=== PATIENT | female | born 1960 | race Caucasian/White ===

== ENCOUNTER 2017-09-23 10:31 | Outpatient (CLI) | payer OTHER ==
--- NOTE | 2017-09-23 14:53 | MRI ---
MRI BRAIN WITHOUT CONTRAST: Date 09/23/17 HISTORY: Chronic headache. Migraine headache. COMPARISON: None. TECHNIQUE: Brain MRI is performed without intravenous Gadolinium administration. Multisequential, multiplanar i maging is performed. FINDINGS: No hemorrhage on the axial gradient echo sequence. Calvarium has a normal marrow signal intensity. Midline brain parenchymal structures are unremarkabl e. Central arterial flow-voids are maintained. Absent restricted diffusion. Adequate aeration of the sinuses and mastoid air cells. Minimal white matter hyperintensities on the axial T2 and FLAIR sequence likely due to chronic small vessel ischemic change. No parenchymal mass, mass effect, or midline shift. Brain volume is age-appropriate. Cortical hutchinson-w serekanth matter differentiation preserved. Ventricles and sulci are patent and symmetric. IMPRESSION: Unremarkable noncontrast brain MRI. POS: JORDON
== END 2017-09-23 10:32 | disposition home or self-care (01) ==
LOC: MRI 10:31
PROVIDERS: ATTEND Student in an Organized Health Care Education/Training Program
DX: G43.909 Migraine, unspecified, not intractable, without status migrainosus (principal); R51 Headache
CPT/HCPCS: 70551

== ENCOUNTER 2018-05-01 12:54 | Outpatient (CLI) | payer OTHER | END 2018-05-01 12:55 | disposition home or self-care (01) | LOC: BICCT 12:54 | PROVIDERS: ATTEND Orthopaedic Surgery Hand Surgery | DX: M18.11 Unilateral primary osteoarthritis of first carpometacarpal joint, right hand (principal) ==

== ENCOUNTER 2018-06-16 12:01 | Outpatient (CLI) | payer OTHER ==
--- NOTE | 2018-06-16 15:31 | MRI ---
MRI OF THE LEFT WRIST: Date: 06/16/18 PROVIDED CLINICAL HISTORY: Left wrist pain and swelling. FINDINGS: The dorsal extensor and volar flexor tendons demonstrate an intact MR appearance. There is greater th an physiologic tenosynovial fluid involving the contents of the carpal tunnel. Greater than physiolog ic tenosynovial fluid also involves the fourth dorsal extensor compartment. There is slightly greater than physiologic fluid within the distal radial ulnar, mid carpal, and radi ocarpal joints. Evaluation is limited by patient motion on the coronal and sagittal sequences. Radioc arpal joint space loss is suggested. There is patchy periarticular marrow signal alteration within th e carpus. The TFC complex appears grossly intact. The intrinsic wrist ligaments are not well evaluate d. The courses of the regional major neurovascular structures demonstrate an unremarkable MR appearance. No focal concerning regional muscular signal abnormality. IMPRESSION: Flexor and extensor tenosynovitis, along with small radiocarpal, mid carpal, and distal radioulnar heidi int effusions and patchy carpal marrow edema. Findings suggest inflammatory arthritis such as rheumat oid. Infectious etiologies should also be considered. POS: KHANH
== END 2018-06-16 12:02 | disposition home or self-care (01) ==
LOC: SCSMRI 12:01
PROVIDERS: ATTEND Orthopaedic Surgery Hand Surgery
DX: M65.4 Radial styloid tenosynovitis [de Quervain] (principal); M77.8 Other enthesopathies, not elsewhere classified

== ENCOUNTER 2019-01-14 13:06 | Outpatient (CLI) | payer OTHER ==
--- NOTE | 2019-01-14 16:02 | CT ---
CT CHEST WITHOUT CONTRAST: 01/14/19 HISTORY: Banning sized lesion in the right upper lobe noted on a shoulder radiograph. COMPARISON: None. TECHNIQUE: Noncontrast chest CT is performed in the axial plane. Reformatted images are submitted for interpreta tion. FINDINGS: There is enlarged precarinal lymph node measuring 1.3 x 1.6 cm. Heart size is within normal limits. N o pericardial effusion. There is atherosclerosis of a nonaneurysmal aorta. The visualized upper solid organs are grossly unremarkable. Mildly enlarged 1.4 cm right axillary lym ph node. Trachea and central bronchi are patent. Mild bullous change in both lung apices. There are no suspici ous masses or consolidation in the right upper lobe, middle lobe, or right lower lobe. There are no s uspicious masses or consolidation in the left upper lobe or left lower lobe. Minimal bullous changes in the superior segment of the left lower lobe. There are no lytic or blastic lesions within the osseous structures. IMPRESSION: 1. Nonspecific precarinal as well as right axillary lymph nodes, mildly enlarged. 2. No suspicious masses in the lung parenchyma. Mild bullous change involving both lung apices a nd the superior of the left lower lobe. POS: [facility]
== END 2019-01-14 13:07 | disposition home or self-care (01) ==
LOC: SCSCT 13:06
PROVIDERS: ATTEND Orthopaedic Surgery Hand Surgery
DX: Z72.0 Tobacco use (principal); R59.0 Localized enlarged lymph nodes
CPT/HCPCS: 71250

== ENCOUNTER 2019-02-17 10:44 | Outpatient (CLI) | payer OTHER ==
--- NOTE | 2019-02-23 13:21 | MMO ---
Bilateral MAMMO Bilat Screen DDI. CLINICAL HISTORY: Patient is 58 years old and is seen for screening. The patient has no family history of breast cancer. The patient has no personal history of cancer. VIEWS: The views performed were: bilateral craniocaudal and bilateral mediolateral oblique. This study has been interpreted with the assistance of computer-aided detection. MAMMOGRAM FINDINGS: There are scattered fibroglandular densities. There are no suspicious masses, calcifications or areas of architectural distortion. IMPRESSION: THERE IS NO MAMMOGRAPHIC EVIDENCE OF MALIGNANCY. A ROUTINE FOLLOW-UP MAMMOGRAM IN 1 YEAR IS RECOMMENDED. ACR BI-RADS Category 1 - Negative MAMMOGRAPHY NOTE: 1. A negative mammogram report should not delay a biopsy if a dominant of clinically suspicious mass is present. 2. Approximately 10% to 15% of breast cancers are not detected by mammography. 3. Adenosis and dense breasts may obscure an underlying neoplasm.
== END 2019-02-17 10:45 | disposition home or self-care (01) ==
LOC: BICMAMMO 10:44
PROVIDERS: ATTEND Nurse Practitioner Family
DX: Z12.31 Encounter for screening mammogram for malignant neoplasm of breast (principal)
CPT/HCPCS: 77063; 77067

== ENCOUNTER 2019-02-17 15:05 | Outpatient (CLI) | payer OTHER ==
--- NOTE | 2019-02-17 16:25 | ULT ---
CAROTID ULTRASOUND WITH BERMAN SCALE AND DOPPLER DUPLEX COLOR FLOW IMAGING SPECTRAL ANALYSIS PERFORMED: CLINICAL INDICATION: Carotid bruit. FINDINGS: There is scattered mild to moderate intimal thickening/plaque formation and atherosclerotic calcifica tion of the carotid arteries. PEAK SYSTOLIC VELOCITY (CM/S): Right CCA 94 Left CCA 117 Right ICA 119 Left ICA 139 There is antegrade bilateral flow within the visualized bilateral vertebral arteries. IMPRESSION: 1. No hemodynamically significant stenosis of the right internal carotid artery. 2. Moderate stenosis of the left internal carotid artery. POS: JORDON
== END 2019-02-17 15:06 | disposition home or self-care (01) ==
LOC: BICULT 15:05
PROVIDERS: ATTEND Nurse Practitioner Family
DX: R09.89 Other specified symptoms and signs involving the circulatory and respiratory systems (principal); I65.22 Occlusion and stenosis of left carotid artery
CPT/HCPCS: 93880

== ENCOUNTER 2019-03-28 13:50 | Emergency (ER) | payer OTHER ==
[2019-03-28] MEDS ORDERED: Magnesium 2 GM/50 ML BAG (IN WATER) ONE (14:10)
[2019-03-28] MEDS ORDERED: methylPREDNISolone Sod Succ/PF 125 MG/2 ML VIAL ONE (14:10)
[2019-03-28 14:18] LABS: #Eosinphils 0.1 thou/uL (0.0-0.7); #Lymphocytes 1.6 thou/uL (1.20-3.40); %Basophils 0.2 % (0.0-1.0); %Eosinophils 0.8 % (0.0-10.0); %Lymphocytes 11.3 % (21.0-51.0); %Monocytes 7.1 % (0.0-10.0); %Neutrophils 80.6 % (42.0-75.0); Hemoglobin 14.1 g/dL (12.0-16.0); Mean Corpuscular Hemoglobin 31.3 pg (27.0-31.0); Mean Corpuscular Volume 94.8 fL (78.0-98.0); Mean Platelet Volume 5.4 fL (7.4-10.4); Platelet Count 415 thou/uL (130-400); Red Blood Cell (RBC) Count 4.52 mill/uL (4.20-5.40); White Blood Cell (WBC) Count 13.7 thou/uL (4.8-10.8)
[2019-03-28 14:38] LABS: ALT (SGPT) 16 U/L (8-55); AST (SGOT) 16 U/L (5-34); Alkaline Phosphatase 141 U/L (40-150); Anion Gap 12 mmol/L (10-20); BUN (Urea Nitrogen) 4 mg/dL (9.8-20.1); Bilirubin, Total 0.3 mg/dL (0.2-1.2); Calc. Creatinine Clearance 0 mL/min (70-130); Calcium 9.4 mg/dL (7.8-10.44); Carbon Dioxide 30 mmol/L (22-29); Chloride 90 mmol/L (98-107); Estimated GFR-MDRD Greater than 90; Glucose 97 mg/dL (70-105); Potassium 4.2 mmol/L (3.5-5.1); Sodium 128 mmol/L (136-145)
--- NOTE | 2019-03-28 15:11 | RAD ---
PORTABLE CHEST: Date: 03/28/19 HISTORY: Chest pain. COMPARISON: 01/13/14. FINDINGS: Lungs are clear. No evidence of infiltrate. Heart size within normal range. There is mild vascular en gorgement and some interstitial prominence. No evidence of effusion. IMPRESSION: Question mild vascular and interstitial engorgement. POS: OFF
== END 2019-03-28 15:59 | disposition home or self-care (01) ==
LOC: ERS 13:50
DX: J45.901 Unspecified asthma with (acute) exacerbation (principal); E87.1 Hypo-osmolality and hyponatremia; E78.5 Hyperlipidemia, unspecified; I10 Essential (primary) hypertension; F31.9 Bipolar disorder, unspecified; F17.210 Nicotine dependence, cigarettes, uncomplicated
CPT/HCPCS: 36415; 71045; 80053; 83880; 84484; 85025; 93005; 94640; 96365; 96375; J2930; J3475; J7620

== ENCOUNTER 2019-03-31 14:17 | Observation (INO) | payer OTHER ==
--- NOTE | 2019-03-31 15:24 | RAD ---
Radiograph chest 2 views: HISTORY: Hypoxemia and dyspnea FINDINGS: No pulmonary edema, consolidation, cardiomegaly, pleural effusion, or pneumothorax. IMPRESSION: No acute findings.
[2019-03-31 15:27] LABS: #Lymphocytes 2.3 thou/uL (1.20-3.40); #Monocytes 0.7 thou/uL (0.11-0.59); #Neutrophils 8.5 thou/uL (1.40-6.50); %Basophils 0.4 % (0.0-1.0); %Eosinophils 0.1 % (0.0-10.0); %Lymphocytes 20.1 % (21.0-51.0); %Monocytes 5.8 % (0.0-10.0); %Neutrophils 73.6 % (42.0-75.0); Hemoglobin 13.2 g/dL (12.0-16.0); Mean Corpuscular HGB CONC 33.2 g/dL (32.0-36.0); Mean Corpuscular Hemoglobin 31.5 pg (27.0-31.0); Mean Corpuscular Volume 94.9 fL (78.0-98.0); Mean Platelet Volume 5.9 fL (7.4-10.4); Platelet Count 387 thou/uL (130-400); RBC Distribution Width 13.9 % (11.5-14.5); Red Blood Cell (RBC) Count 4.19 mill/uL (4.20-5.40); White Blood Cell (WBC) Count 11.6 thou/uL (4.8-10.8)
[2019-03-31 15:54] LABS: Bilirubin Negative (Negative); Blood, Urine Trace (Negative); Clarity CLEAR (Clear); Glucose, Urine (Dipstick) Negative (Negative); Leukocyte Negative (Negative); Nitrite Negative (Negative); Protein, Urine (Dipstick) Negative (Neg-Trace); Specific Gravity, Urine 1.009 (1.002-1.036); Urobilinogen 0.2 mg/dL (0.2-1.0)
[2019-03-31 15:57] LABS: Bacteria/HPF None Seen HPF (None Seen); Hyaline Casts/LPF 0-3 HYALINE CAST LPF (0-3 Hyaline); Squamous Epithelial None Seen HPF (0-3); WBC/HPF None Seen HPF (0-3)
[2019-03-31 16:37] LABS: Anion Gap 13 mmol/L (10-20); BUN (Urea Nitrogen) 8 mg/dL (9.8-20.1); Calc. Creatinine Clearance 0 mL/min (70-130); Carbon Dioxide 27 mmol/L (22-29); Chloride 92 mmol/L (98-107); Estimated GFR-MDRD Greater than 90; Glucose 98 mg/dL (70-105); Potassium 4.1 mmol/L (3.5-5.1); Sodium 128 mmol/L (136-145)
[2019-03-31 16:38] LABS: ALT (SGPT) 19 U/L (8-55); AST (SGOT) 12 U/L (5-34); Albumin 3.9 g/dL (3.5-5.0); Alkaline Phosphatase 112 U/L (40-150); Bilirubin, Total 0.3 mg/dL (0.2-1.2); CK (CPK) 48 U/L (29-168); Calcium 9.7 mg/dL (7.8-10.44); Globulin 3.2 g/dL (2.4-3.5); Protein, Total 7.1 g/dL (6.0-8.3)
[2019-03-31] MEDS ORDERED: Ondansetron PF 4 MG/2 ML Vial IVP PRN (21:28)
[2019-03-31] MEDS ORDERED: Acetaminophen 325 MG TAB PO PRN (21:28)
[2019-03-31] MEDS ORDERED: Ondansetron ODT 4 MG TAB PO PRN (21:28)
[2019-03-31] MEDS ORDERED: Colestipol HCl 5 GM PK PO SCH (23:00)
[2019-03-31] MEDS ORDERED: methylPREDNISolone Sod Succ/PF 125 MG/2 ML VIAL IVP SCH (23:59)
[2019-04-01] MEDS ORDERED: Perphenazine 2 MG TAB PO SCH ×2 (00:15→21:00)
[2019-04-01] MEDS ORDERED: Ezetimibe 10 MG TAB PO SCH (00:15)
[2019-04-01] MEDS: Melatonin 3 MG TAB PO PRN ×2 (01:18→21:10)
[2019-04-01] MEDS ORDERED: methylPREDNISolone Sod Succ 40 MG VIAL ONE ×2 (01:21→06:36)
[2019-04-01] MEDS: methylPREDNISolone Sod Succ 40 MG VIAL IVP SCH ×5 (01:23→23:59)
--- NOTE | 2019-04-01 03:10 | HP ---
PRIMARY CARE DOCTOR: Dr. Cuauhtemoc Lopez. CODE STATUS: Full code. TIME OF EVALUATION: 08:00 p.m. CHIEF COMPLAINT: Shortness of breath. HISTORY OF PRESENT ILLNESS: This is a 58-year-old female patient with past medical history of asthma, hyperlipidemia, high cholesterol, hypertension, rheumatoid arthritis, on methotrexate, also long-term smoker, came to the hospital after having severe gradually worsening shortness of breath. The symptoms have been present for the past few days associated with audible wheezing, she was found to be hypoxic and she was sent to the hospital for that reason. By the time I have seen the patient, the patient is still needing 2 L nasal cannula to keep saturation above 90. REVIEW OF SYSTEMS: CONSTITUTIONAL: No fever, chills, or generalized weakness. RESPIRATORY: The patient has wheezing, cough, scant sputum production, shortness of breath. CARDIOVASCULAR: No chest pain or palpitation. GASTROINTESTINAL: No nausea, vomiting, diarrhea, or abdominal pain. COMMERCIAL LOAN MANAGER: No dizziness, headache, or feeling lightheaded. GENITOURINARY: No burning on urination. EXTREMITIES: No leg swelling. All other systems were reviewed and negative except for the findings mentioned above. PAST MEDICAL HISTORY: As mentioned in the HPI. PAST SURGICAL HISTORY: The patient had x2, hernia repair, uterine reconstruction. PSYCHIATRIC HISTORY: Bipolar disorder. SOCIAL HISTORY: No alcohol. No drugs. She smokes on a daily basis since she was years old. Lives at home alone. KNOWN ALLERGIES: To niacin and Nystatin. REPORTED MEDICATIONS: 1. Albuterol sulfate. 2. Doxycycline. 3. Prednisone. 4. Methotrexate. 5. Sodium. 6. Perphenazine. 7. Carbamazepine. 8. Colestipol. 9. Zetia. 10. Lisinopril. 11. Aspirin. 12. Melatonin. PHYSICAL EXAMINATION: VITAL SIGNS: Heart rate 74, respiratory rate was 20, oxygen saturation 94% on room air, and blood pressure 172/81. GENERAL APPEARANCE: The patient is alert, oriented, not in acute distress. HEENT: Eyes, normal conjunctivae. Moist oral mucosa. Anicteric. No JVD. RESPIRATORY: Bilateral air entry is decreased. The patient has wheezing. No rales. Symmetric expansion, but decreased. CARDIOVASCULAR: Normal rate, regular rhythm. No murmurs. No gallop. No edema. ABDOMEN: Soft. Normal bowel sounds. MUSCULOSKELETAL: Baseline range of motion and strength. No tenderness. SKIN: Warm, intact. No pallor. No rash. No redness. Peripheral pulses are present. Capillary refill seems to be intact. NEUROLOGIC: No evidence of any new focal weakness. Baseline speech. Cranial nerves seems to be intact. PSYCH: The patient is in good mood. No anxiety. Optimal judgment. DIAGNOSTIC STUDIES: EKG was reviewed. The patient has normal sinus rhythm, possible left atrial enlargement and borderline EKG. The ventricular rate is 70, the MD is 162, QRS is 80, and QT corrected 429. Chest x-ray was reviewed. The patient has no acute findings. LABORATORY DATA: Reviewed. The patient has white count 11.6, hemoglobin 13.2, MCV 94.9, and platelet count 387. Chemistry; sodium 128, potassium 4.1, chloride 92, carbon dioxide 27, anion gap 13, BUN 8, creatinine 0.54, GFR greater than 90, glucose 98, lactic acid 1.0. LFTs were negative. Troponin was negative. Urine was negative. ASSESSMENT AND PLAN: The patient will be placed in the hospital with following medical problems: 1. Possible newly diagnosed chronic obstructive pulmonary disease exacerbation. The patient has no respiratory studies done before. However, she has been smoking since she was years old and also has a history of asthma. It could be surprised that the patient has underlying undiagnosed chronic obstructive pulmonary disease. The patient will receive nebulizers, steroids, and antibiotic. 2. History of rheumatoid arthritis. The patient received immunosuppressive therapies. We will monitor closely. This places the patient at high risk of complication from high immunosuppression. We will adjust treatment as per patient's clinical progress. 3. High cholesterol. Low-cholesterol diet is advised. Reconcile home medications. 4. Uncontrolled hypertension, occasional. The patient has systolic blood pressure in the 150s, reconcile home medications. Adjust as needed. 5. Deep vein thrombosis prophylaxis. Job ID: [id number]
[2019-04-01 04:19] LABS: #Eosinphils 0.1 thou/uL (0.0-0.7); #Lymphocytes 1.6 thou/uL (1.20-3.40); #Monocytes 0.6 thou/uL (0.11-0.59); #Neutrophils 11.9 thou/uL (1.40-6.50); %Basophils 0.1 % (0.0-1.0); %Eosinophils 0.7 % (0.0-10.0); %Lymphocytes 11.1 % (21.0-51.0); %Monocytes 4.3 % (0.0-10.0); %Neutrophils 83.8 % (42.0-75.0); Hemoglobin 13.3 g/dL (12.0-16.0); Mean Corpuscular Hemoglobin 32.2 pg (27.0-31.0); Mean Corpuscular Volume 94.9 fL (78.0-98.0); Mean Platelet Volume 5.8 fL (7.4-10.4); Platelet Count 387 thou/uL (130-400); RBC Distribution Width 13.9 % (11.5-14.5); Red Blood Cell (RBC) Count 4.13 mill/uL (4.20-5.40); White Blood Cell (WBC) Count 14.2 thou/uL (4.8-10.8)
[2019-04-01 04:38] LABS: Anion Gap 15 mmol/L (10-20); BUN (Urea Nitrogen) 9 mg/dL (9.8-20.1); Calc. Creatinine Clearance 0 mL/min (70-130); Calcium 9.6 mg/dL (7.8-10.44); Carbon Dioxide 24 mmol/L (22-29); Chloride 93 mmol/L (98-107); Estimated GFR-MDRD Greater than 90; Glucose 124 mg/dL (70-105); Potassium 4.3 mmol/L (3.5-5.1); Sodium 128 mmol/L (136-145)
[2019-04-01] MEDS ORDERED: Folic Acid 1 MG TAB PO SCH ×2 (09:00→21:45)
--- NOTE | 2019-04-01 10:21 | PRG ---
DATE OF SERVICE: 04/01/2019 SUBJECTIVE: The patient is seen and examined at bedside. She feels somewhat better. OBJECTIVE: VITAL SIGNS: Blood pressure is 146/97, heart rate 77, respiratory rate 21, O2 saturation 95% on 2 L, and temperature 98.1. HEENT: Her head is atraumatic and normocephalic. Eyes are PERRLA. Sclerae nonicteric. Oral mucosa is moist. NECK: Supple. LUNGS: With bilateral rales and wheezing. HEART: S1 and S2 normal. No S3. No S4. ABDOMEN: Soft, nontender, obese. EXTREMITIES: No clubbing, cyanosis, or edema. NEUROLOGIC: She is alert and oriented x4. There is no any motor or sensory deficits present. Cranial nerves are intact. LABORATORY DATA: Labs showed white count of 14.2, hemoglobin of 13.3, hematocrit 39.2, platelet count is 387,000. Sodium is 128, potassium 4.3, chloride 93, BUN 9, creatinine 0.59, glucose 124, calcium 9.6. IMPRESSION: 1. Spastic bronchitis with hypoxemia. 2. Hyponatremia and hypochloremia. This is most likely related to carbamazepine use, but I will try to give her IV fluids to rule out volume depletion as a source of that. 3. Arthritis, currently on methotrexate and prednisone. 4. Hyperlipidemia. 5. Labile hypertension. PLAN: Plan is to continue her IV steroids, IV antibiotic, and DuoNeb. We will start her on normal saline . She took her methotrexate last Saturday, so she is due for her next dose upcoming Saturday DVT prophylaxis. Job ID: [id number]
[2019-04-01] MEDS ORDERED: Enoxaparin Sodium 40 MG/0.4 ML SYRINGE ONE (10:25)
[2019-04-01] MEDS: Enoxaparin Sodium 40 MG/0.4 ML SYRINGE SC SCH (10:34)
[2019-04-01] MEDS: Lisinopril 10 MG TAB PO SCH (11:07)
[2019-04-01 12:03] VITALS: BMI 35.9
[2019-04-02] MEDS: methylPREDNISolone Sod Succ 40 MG VIAL IVP SCH (05:49)
[2019-04-02 08:20] VITALS: BP 138/66; TEMP 97.7
[2019-04-02] MEDS: Enoxaparin Sodium 40 MG/0.4 ML SYRINGE SC SCH (08:21)
[2019-04-02] MEDS: Lisinopril 10 MG TAB PO SCH (08:22)
[2019-04-02] MEDS ORDERED: Folic Acid 1 MG TAB PO SCH (09:00)
--- NOTE | 2019-04-02 10:18 | DIS ---
DATE OF ADMISSION: 03/31/2019 DATE OF DISCHARGE: 04/02/2019 FINAL DIAGNOSES: 1. Spastic bronchitis versus asthma with hypoxemia. 2. Hyponatremia and hypochloremia. 3. Rheumatoid arthritis. 4. Hyperlipidemia. 5. Labile hypertension. HOSPITAL COURSE: The patient is a 58-year-old female with past medical history of asthma, hyperlipidemia, hypertension, rheumatoid arthritis. Also, long-term smoker, who came to the hospital after having severe gradually worsening shortness of breath. Apparently, she had a couple of days of congestion and cough, and she went to the primary care physician, who recommended her to go to the emergency room for further evaluation. While in the emergency room, she had white count of 11.6, hemoglobin was 13.2, platelet count was 387. Sodium was 128, potassium 4.1, chloride 92, CO2 of 27, BUN 8, creatinine 0.54. Her glucose was 98. Lactic acid 1.0. LFTs were negative. Troponin I was negative and urine was negative. Her chest x-ray negative for any acute findings. Her electrocardiogram showed sinus rhythm with possible left atrial enlargement, ventricular rate was 70. The patient got admitted to the hospital for further evaluation. She was started on IV steroids and IV antibiotic, Levaquin 750 mg IV piggyback every 24 hours. Apparently, she is a rheumatoid arthritis patient on methotrexate, so she has some immunosuppression going on. She was asked to hold her methotrexate after the discharge, but she responded very nicely to nebulizers, steroids, and antibiotic. She is doing well. She does not require any oxygen any more. Her pulse oximetry is 94 percent on room air. Her temperature is 97.7, pulse 74, respirations 16, and temp. Blood pressure is 138/66. She has been wheezing and this improved to the point that she does not have any wheezing anymore. She is able to ambulate and she can be discharged home. Our recommendation is to stay on heart healthy diet. ACTIVITY: As tolerated. MEDICATIONS: At the time of discharge, 1. Levofloxacin 500 mg once a day. 2. Albuterol sulfate HFA one puff q.4 hours p.r.n. 3. Prednisone 40 mg every morning x2 days, then 20 mg every morning x2 days, then 10 mg every morning x2 days. 4. at bedtime. 5. Carbamazepine 400 mg at bedtime. 6. Zetia 10 mg once a day. 7. Lisinopril 10 mg once a day. 8. Folic acid 1 mg once a day. 9. Aspirin 81 mg once a day. 10. Colestipol 2 mg once a day plus I believe additional dose of 4 a day. 11. Melatonin 10 mg at bedtime. Her hyponatremia is most likely related to carbamazepine, and we recommend her to have BMP done again when she is going to go back to her primary care physician in 1 week to confirm that. Her sodium was 128, and clinically, she is doing well. TIME SPENT: Discharge time spent is less than 30 minutes. Job ID: [id number]
[2019-04-02] MEDS ORDERED: Ezetimibe 10 MG TAB PO SCH (16:00)
== END 2019-04-02 12:42 | disposition home or self-care (01) ==
LOC: ERS 14:17 → 2SW 18:00 → ERHOLD 18:13 → INTOOBSV 18:13 → 2SW 04-01 11:16
PROVIDERS: ADMIT Internal Medicine; ATTEND Internal Medicine
DX: R06.02 Shortness of breath (principal); J45.909 Unspecified asthma, uncomplicated; E78.5 Hyperlipidemia, unspecified; E78.00 Pure hypercholesterolemia, unspecified; I10 Essential (primary) hypertension; F17.210 Nicotine dependence, cigarettes, uncomplicated; M06.9 Rheumatoid arthritis, unspecified; F31.9 Bipolar disorder, unspecified; E87.1 Hypo-osmolality and hyponatremia; E87.8 Other disorders of electrolyte and fluid balance, not elsewhere classified; Z79.52 Long term (current) use of systemic steroids; Z79.82 Long term (current) use of aspirin; Z79.899 Other long term (current) drug therapy; Z88.8 Allergy status to other drugs, medicaments and biological substances
CPT/HCPCS: 36415; 71046; 80048; 80053; 81003; 81015; 82550; 83605; 84484; 85025; 87040; 93005; 94640; 94760; 96365; 96366; 96372; 96375; 96376; G0378; J1650; J1956; J2920; J7620; Q0175

== ENCOUNTER 2019-07-21 12:17 | Emergency (ER) | payer OTHER ==
[~2019-07-21 12:17] MED LIST: ISOVUE-370 76%-LOCM 1 ML ONE
--- NOTE | 2019-07-21 12:43 | RAD ---
Chest AP view INDICATION: Chest pain COMPARISON: March 31, 2019 FINDINGS: Lungs:The lungs are clear Cardiac silhouette pulmonary vasculature:There is stable mild cardiomegaly. The pulmonary vasculature appears within normal limits. Pleural spaces:No pleural effusion or pneumothorax is demonstrated. Upper abdomen:No abnormality seen. Osseous structures: No acute osseous abnormality. Additional findings:None. IMPRESSION: No acute cardiopulmonary abnormality.
[2019-07-21 12:53] LABS: #Basophils 0.1 thou/uL (0.0-0.2); #Eosinphils 0.1 thou/uL (0.0-0.7); #Lymphocytes 2.5 thou/uL (1.20-3.40); #Monocytes 0.9 thou/uL (0.11-0.59); #Neutrophils 8.8 thou/uL (1.40-6.50); %Basophils 0.9 % (0.0-1.0); %Eosinophils 0.9 % (0.0-10.0); %Lymphocytes 19.9 % (21.0-51.0); %Monocytes 7.1 % (0.0-10.0); %Neutrophils 71.2 % (42.0-75.0); Hemoglobin 13.6 g/dL (12.0-16.0); Mean Corpuscular Hemoglobin 32.5 pg (27.0-31.0); Mean Corpuscular Volume 98.7 fL (78.0-98.0); Mean Platelet Volume 6.1 fL (7.4-10.4); Platelet Count 377 thou/uL (130-400); RBC Distribution Width 13.3 % (11.5-14.5); Red Blood Cell (RBC) Count 4.19 mill/uL (4.20-5.40); White Blood Cell (WBC) Count 12.3 thou/uL (4.8-10.8)
[2019-07-21 13:15] LABS: ALT (SGPT) 21 U/L (8-55); AST (SGOT) 15 U/L (5-34); Albumin 3.8 g/dL (3.5-5.0); Alkaline Phosphatase 136 U/L (40-150); Anion Gap 14 mmol/L (10-20); BUN (Urea Nitrogen) 5 mg/dL (9.8-20.1); Bilirubin, Total 0.4 mg/dL (0.2-1.2); CK (CPK) 27 U/L (29-168); Calc. Creatinine Clearance 0 mL/min (70-130); Calcium 8.5 mg/dL (7.8-10.44); Carbon Dioxide 26 mmol/L (22-29); Chloride 94 mmol/L (98-107); Estimated GFR-MDRD Greater than 90; Globulin 2.2 g/dL (2.4-3.5); Glucose 94 mg/dL (70-105); Lipase 4 U/L (8-78); Potassium 4.5 mmol/L (3.5-5.1); Sodium 129 mmol/L (136-145)
--- NOTE | 2019-07-21 14:28 | CT ---
Exam: CT angiogram of the chest HISTORY: Chest pain. COMPARISON: None TECHNIQUE: CT angiogram of the chest is performed in the axial plane. Three-dimensional reformatted i mages are submitted for interpretation FINDINGS: Mediastinum: No mass, or hematoma. Enlarged precarinal lymph node measuring 0.9 x 1.6 cm. Additional nonenlarged subcarinal, AP window and prevascular lymph nodes are noted. HEART: Normal size. No significant pericardial fluid. Reflux of contrast into the hepatic veins likel y due to right heart failure. Aorta: No aneurysm or dissection Upper solid abdominal viscera: No abnormality enhancement. Trachea and central bronchi: Patent Pleural spaces: No effusion Pulmonary hilum: Enlarged right hilar lymph node measuring 1.2 x 1.3 cm. Enlarged left hilar lymph no de measuring 1.0 x 1.3 cm. Lung parenchyma: No masses or consolidation. Minimal emphysematous changes in the left and right uppe r lobe. Pneumothorax: None Osseous structures: No lytic or blastic lesions Pulmonary arteries: Adequate contrast opacification pulmonary arterial system to the level of segment al arteries. No filling defect to suggest pulmonary embolism IMPRESSION: 1. No evidence of pulmonary artery embolism to the level segmental arteries 2. Enlarged mediastinal and hilar lymphadenopathy as above. Correlate for infectious, inflammatory or neoplastic process.
[2019-07-21 14:36] LABS: Troponin I Less than 0.010 ng/mL (< 0.028)
--- NOTE | 2019-07-25 13:39 | EKG ---
Test Reason : Blood Pressure : / mmHG Vent. Rate : 065 BPM Atrial Rate : 065 BPM P-R Int : 168 ms QRS Dur : 074 ms QT Int : 414 ms P-R-T Axes : 069 046 045 degrees QTc Int : 430 ms Normal sinus rhythm Normal ECG Confirmed by SIMRAN MADDOX, DANE ([id number]), publications editor [address] ([id number]) on 07/25/2019 1:39:17 PM Referred By: Confirmed By:DANE KHALIL MD
== END 2019-07-21 14:53 | disposition home or self-care (01) ==
LOC: ERS 12:17
DX: R07.9 Chest pain, unspecified (principal); R59.0 Localized enlarged lymph nodes; E78.5 Hyperlipidemia, unspecified; E78.00 Pure hypercholesterolemia, unspecified; I10 Essential (primary) hypertension; J44.9 Chronic obstructive pulmonary disease, unspecified; M06.9 Rheumatoid arthritis, unspecified; F31.9 Bipolar disorder, unspecified; F17.210 Nicotine dependence, cigarettes, uncomplicated
CPT/HCPCS: 36415; 71045; 71275; 80053; 82550; 83690; 83880; 84484; 85025; 85379; 93005; 96360; Q9966

== ENCOUNTER 2020-07-22 07:41 | Outpatient (CLI) | payer OTHER ==
[2020-07-22 14:11] LABS: Hemoglobin 14.4 g/dL (12.0-16.0); Mean Corpuscular HGB CONC 33.4 g/dL (32.0-36.0); Mean Corpuscular Hemoglobin 31.3 pg (27.0-31.0); Mean Corpuscular Volume 93.7 fL (78.0-98.0); Platelet Count 426 thou/uL (130-400); RBC Distribution Width 12.2 % (11.5-14.5); White Blood Cell (WBC) Count 9.5 thou/uL (4.8-10.8)
[2020-07-22 14:17] LABS: INR-International Normal Ratio 0.9; PTT 27.2 sec (22.9-36.1); Prothrombin Time 12.4 sec (12.0-14.7)
[2020-07-22 14:51] LABS: Anion Gap 13 mmol/L (10-20); BUN (Urea Nitrogen) 10 mg/dL (9.8-20.1); Calc. Creatinine Clearance 0 mL/min (70-130); Calcium 9.1 mg/dL (7.8-10.44); Carbon Dioxide 29 mmol/L (22-29); Chloride 95 mmol/L (98-107); Estimated GFR-MDRD Greater than 90; Glucose 62 mg/dL (70-105); Potassium 4.2 mmol/L (3.5-5.1); Sodium 133 mmol/L (136-145)
--- NOTE | 2020-07-22 16:47 | EKG ---
Test Reason : SURGERY Blood Pressure : / mmHG Vent. Rate : 064 BPM Atrial Rate : 064 BPM P-R Int : 174 ms QRS Dur : 082 ms QT Int : 424 ms P-R-T Axes : 071 037 051 degrees QTc Int : 437 ms Normal sinus rhythm Possible Left atrial enlargement Septal infarct , age undetermined Abnormal ECG No previous ECGs available Confirmed by DR. Cathi REYNAGA ([id number]) on 07/22/2020 4:47:28 PM Referred By: FERNANDEZ Confirmed By:DR. Cathi REYNAGA
[2020-07-23 14:04] LABS: SARS-CoV-2 MS2 Positive; SARS-CoV-2 N Gene Negative; SARS-CoV-2 S Gene Negative; SARS-CoV-2 by NAA Not Detected (NotDetected); SARS-CoV-2 orf1ab Negative
== END 2020-07-22 07:42 | disposition home or self-care (01) ==
LOC: LABBT 07:41
PROVIDERS: ATTEND Surgery
DX: Z01.818 Encounter for other preprocedural examination (principal); Z20.828 Contact with and (suspected) exposure to other viral communicable diseases; M54.16 Radiculopathy, lumbar region; M48.061 Spinal stenosis, lumbar region without neurogenic claudication; M71.38 Other bursal cyst, other site
CPT/HCPCS: 80048; 85027; 85610; 85730; 87635; 93005; 93010; U0003

== ENCOUNTER 2020-07-26 12:39 | Day surgery (SDC) | payer OTHER ==
[~2020-07-26 12:39] MED LIST changes: +Acetaminophen 325 MG TAB PO PRN; +Acetaminophen/Codeine 30-300mg Tablet PO PRN; +Albuterol Sulfate HFA (OR ONLY) ONE; +Bisacodyl 10 MG SUPP PR PRN; +Dexamethasone 20 MG/5 ML VIAL ONE; +Fentanyl 100 MCG/2 ML VIAL ONE; +Glycopyrrolate 0.2 MG/ML 5 ML SYRINGE ONE; -ISOVUE-370 76%-LOCM 1 ML ONE; +Ketorolac Tromethamine 30 MG/ML VIAL ONE; +Lidocaine 1% PF 5 ML VIAL ONE; +Milk Of Magnesia 30 ML UDCUP PO PRN; +Morphine 2 MG/ML VIAL SLOW IVP PRN; +Ondansetron PF 4 MG/2 ML Vial IVP PRN; +Ondansetron PF 4 MG/2 ML Vial ONE; +PROPOFOL 200 MG/20 ML VIAL ONE; +Rocuronium Bromide 10 MG/ML (10ML VIAL) ONE; +Thrombin 5000 UNITS/5 ML VIAL ONE; +diphenhydrAMINE 25 MG CAP PO PRN; +tiZANidine HCl 4 MG TAB PO PRN; +traMADol HCl 50 MG TAB PO PRN
[2020-07-26] MEDS ORDERED: Fentanyl 100 MCG/2 ML VIAL ONE ×2 (12:44→13:12)
[2020-07-26] MEDS ORDERED: PACU-Morphine 4MG/ML VIAL SLOW IVP PRN (12:50)
[2020-07-26] MEDS ORDERED: HYDROmorphone 2 MG/ML VIAL SLOW IVP PRN (12:50)
[2020-07-26] MEDS ORDERED: Ondansetron HCl/PF 4 MG/2 ML Vial IVP PRN (12:50)
[2020-07-26] MEDS ORDERED: Promethazine HCl 25 MG/ML VIAL IM PRN (12:50)
[2020-07-26] MEDS ORDERED: Morphine Sulfate 2 MG/ML SYRINGE SLOW IVP PRN (12:50)
[2020-07-26] MEDS ORDERED: Promethazine HCl 25 MG/ML VIAL SLOW IVP PRN (12:50)
[2020-07-26] MEDS ORDERED: Albuterol Sulfate 1.25 MG/3 ML NEB NEB PRN (13:00)
[2020-07-26] MEDS ORDERED: HYDROmorphone 0.5 MG/0.5 ML SYRINGE ONE (13:41)
--- NOTE | 2020-07-26 13:47 | OP ---
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 PROCEDURES PERFORMED: 1. Left L3-L4 synovial cyst resection. 2. Right L3-L4 hemilaminotomy and foraminotomy. DESCRIPTION OF PROCEDURE: After informed consent was obtained from the patient, the patient was brought to the OR. Proper patient, pause, and identification were carried out. She was placed under excellent general endotracheal anesthesia and positioned prone on the OR table. All appropriate points were padded. We identified the L3-L4 dorsal spines. Linear guzman was made in this region. This area was sterilely cleansed, prepared, and draped. Proper patient, pause, and identification were carried out. The wound was then opened with a combination of sharp, monopolar, and blunt dissection. The right L3-L4 and left L3-L4 segments were exposed. Right L3-L4 hemilaminotomy and foraminotomy was performed. We then did a left L3-L4 synovial cyst resection with excellent decompression of common dural tube, bilateral L3, and bilateral L4 nerve roots. The wound was then copiously irrigated and closed in anatomic layers following meticulous hemostasis and placement of vancomycin powder. Job ID: [id number]
[2020-07-26 16:28] VITALS: BMI 33.1
[2020-07-26] MEDS: Sodium Chloride 0.9% 1,000 ML IV SCH (16:49)
[2020-07-26] MEDS: Gabapentin 300 MG CAP PO SCH ×2 (16:51→22:18)
[2020-07-26] MEDS: Ezetimibe 10 MG TAB PO SCH (16:51)
[2020-07-26] MEDS: HYDROcodone/Acetaminophen 7.5/325 mg Tablet PO PRN ×2 (16:51→22:17)
[2020-07-26] MEDS: Methocarbamol 500 MG TAB PO SCH ×2 (17:47→22:20)
[2020-07-26] MEDS: CEFAZOLIN 2 GM in Premix Bag 1 BAG IVPB SCH (17:50)
[2020-07-26] MEDS: carBAMazepine 200 MG TAB PO SCH (22:18)
[2020-07-26] MEDS: Perphenazine 2 MG TAB PO SCH (22:22)
[2020-07-27] MEDS: CEFAZOLIN 2 GM in Premix Bag 1 BAG IVPB SCH (00:12)
[2020-07-27] MEDS: Methocarbamol 500 MG TAB PO SCH ×6 (00:12→20:59)
[2020-07-27] MEDS: Sodium Chloride 0.9% 1,000 ML IV SCH ×2 (01:22→16:00)
[2020-07-27] MEDS: HYDROcodone/Acetaminophen 7.5/325 mg Tablet PO PRN ×5 (02:30→23:50)
[2020-07-27] MEDS: Gabapentin 300 MG CAP PO SCH ×3 (08:12→20:58)
[2020-07-27] MEDS: predniSONE 5 MG TAB PO SCH (08:12)
[2020-07-27 09:16] LABS: #Eosinphils 0.1 thou/uL (0.0-0.7); #Lymphocytes 2.1 thou/uL (1.20-3.40); #Monocytes 1.1 thou/uL (0.11-0.59); #Neutrophils 6.4 thou/uL (1.40-6.50); %Basophils 0.5 % (0.0-1.0); %Lymphocytes 21.7 % (21.0-51.0); %Monocytes 10.8 % (0.0-10.0); %Neutrophils 66.1 % (42.0-75.0); Hemoglobin 11.8 g/dL (12.0-16.0); Mean Corpuscular HGB CONC 32.9 g/dL (32.0-36.0); Mean Corpuscular Hemoglobin 30.5 pg (27.0-31.0); Mean Corpuscular Volume 92.8 fL (78.0-98.0); Mean Platelet Volume 6.1 fL (7.4-10.4); Platelet Count 326 thou/uL (130-400); RBC Distribution Width 12.1 % (11.5-14.5); Red Blood Cell (RBC) Count 3.88 mill/uL (4.20-5.40); White Blood Cell (WBC) Count 9.8 thou/uL (4.8-10.8)
[2020-07-27 09:36] LABS: Anion Gap 9 mmol/L (10-20); BUN (Urea Nitrogen) 10 mg/dL (9.8-20.1); Calc. Creatinine Clearance 123 mL/min (70-130); Calcium 8.3 mg/dL (7.8-10.44); Carbon Dioxide 32 mmol/L (22-29); Chloride 95 mmol/L (98-107); Estimated GFR-MDRD Greater than 90; Glucose 81 mg/dL (70-105); Sodium 132 mmol/L (136-145)
--- NOTE | 2020-07-27 09:47 | PRG ---
DATE OF SERVICE: 07/27/2020 Ms. Alonzo is postoperative day #1 following synovial cyst resection and hemilaminotomy. She is doing well with resolution in her leg pain. She is getting up to go to the restroom this morning. She was very pleased with the results of surgery. She lives by herself and will likely need inpatient rehab. Job ID: [id number]
[2020-07-27] MEDS: Ezetimibe 10 MG TAB PO SCH (16:26)
[2020-07-27] MEDS: carBAMazepine 200 MG TAB PO SCH (20:58)
[2020-07-27] MEDS: Perphenazine 2 MG TAB PO SCH (20:58)
[2020-07-28] MEDS: Methocarbamol 500 MG TAB PO SCH ×6 (01:35→20:25)
[2020-07-28] MEDS: Sodium Chloride 0.9% 1,000 ML IV SCH ×2 (04:13→18:23)
[2020-07-28] MEDS: HYDROcodone/Acetaminophen 7.5/325 mg Tablet PO PRN ×4 (06:30→21:14)
[2020-07-28] MEDS: Gabapentin 300 MG CAP PO SCH ×3 (08:17→20:24)
[2020-07-28] MEDS: predniSONE 5 MG TAB PO SCH (08:17)
[2020-07-28] MEDS: Ezetimibe 10 MG TAB PO SCH (15:34)
[2020-07-28] MEDS: carBAMazepine 200 MG TAB PO SCH (20:25)
[2020-07-28] MEDS: Perphenazine 2 MG TAB PO SCH (20:25)
[2020-07-29] MEDS: Methocarbamol 500 MG TAB PO SCH ×6 (00:30→21:11)
[2020-07-29] MEDS: HYDROcodone/Acetaminophen 7.5/325 mg Tablet PO PRN ×5 (03:39→23:18)
[2020-07-29] MEDS: predniSONE 5 MG TAB PO SCH (08:20)
[2020-07-29] MEDS: Gabapentin 300 MG CAP PO SCH ×3 (08:20→22:02)
[2020-07-29] MEDS: Sodium Chloride 0.9% 1,000 ML IV SCH ×2 (08:32→23:04)
--- NOTE | 2020-07-29 11:47 | PRG ---
DATE OF SERVICE: 07/29/2020 SUBJECTIVE: Jane Alonzo is doing well. She has had resolution of her leg pain. She lives by herself. We are planning for inpatient rehab. Job ID: [id number]
[2020-07-29] MEDS ORDERED: Dexamethasone 4 mg/ml Vial SLOW IVP SCH (12:45)
--- NOTE | 2020-07-29 12:56 | PRG ---
DATE OF SERVICE: 07/29/2020 Ms. Alonzo is doing well. She has had some radiculitis. We will give her a dose of Decadron. She is going to rehab. Job ID: [id number]
[2020-07-29] MEDS ORDERED: Dexamethasone 4 MG TAB PO SCH ×2 (13:00)
[2020-07-29] MEDS: Ezetimibe 10 MG TAB PO SCH (14:59)
[2020-07-29] MEDS: Perphenazine 2 MG TAB PO SCH (21:11)
[2020-07-29] MEDS: carBAMazepine 200 MG TAB PO SCH (22:02)
[2020-07-30] MEDS: Methocarbamol 500 MG TAB PO SCH ×6 (01:54→20:23)
[2020-07-30] MEDS: predniSONE 5 MG TAB PO SCH (10:01)
[2020-07-30] MEDS: Sodium Chloride 0.9% 1,000 ML IV SCH ×2 (10:55→23:21)
[2020-07-30] MEDS: Gabapentin 300 MG CAP PO SCH ×3 (10:55→20:23)
--- NOTE | 2020-07-30 11:33 | PRG ---
DATE OF SERVICE: 07/30/2020 Ms. Alonzo is doing well with resolution in her leg pain. She has been accepted to rehab. Unfortunately, she has Medicaid, so who knows when that will happen. Job ID: [id number]
[2020-07-30] MEDS: HYDROcodone/Acetaminophen 7.5/325 mg Tablet PO PRN ×2 (13:11→20:22)
[2020-07-30] MEDS: Ezetimibe 10 MG TAB PO SCH (17:17)
[2020-07-30] MEDS: carBAMazepine 200 MG TAB PO SCH (20:22)
[2020-07-30] MEDS: Perphenazine 2 MG TAB PO SCH (21:12)
[2020-07-31] MEDS: Methocarbamol 500 MG TAB PO SCH ×7 (00:54→20:26)
[2020-07-31] MEDS: HYDROcodone/Acetaminophen 7.5/325 mg Tablet PO PRN ×4 (00:55→20:36)
[2020-07-31] MEDS: Gabapentin 300 MG CAP PO SCH ×3 (10:08→20:35)
[2020-07-31] MEDS: predniSONE 5 MG TAB PO SCH (13:33)
[2020-07-31] MEDS: Sodium Chloride 0.9% 1,000 ML IV SCH (13:38)
[2020-07-31] MEDS: Ezetimibe 10 MG TAB PO SCH (16:56)
[2020-07-31] MEDS: Perphenazine 2 MG TAB PO SCH (20:24)
[2020-07-31] MEDS: carBAMazepine 200 MG TAB PO SCH (20:29)
[2020-08-01] MEDS: Methocarbamol 500 MG TAB PO SCH ×3 (01:06→09:40)
[2020-08-01] MEDS: Sodium Chloride 0.9% 1,000 ML IV SCH (01:10)
[2020-08-01] MEDS: HYDROcodone/Acetaminophen 7.5/325 mg Tablet PO PRN (04:49)
[2020-08-01] MEDS: Gabapentin 300 MG CAP PO SCH (08:48)
[2020-08-01] MEDS: predniSONE 5 MG TAB PO SCH (09:40)
[2020-08-01 11:47] VITALS: BP 123/70; TEMP 98.2
== END 2020-08-01 11:00 | disposition home or self-care (01) ==
LOC: SJJU 12:39 → SDC 12:39 → SJJU 14:37 → SDC 07-29 18:26 → SJJU 07-29 18:26 → SDC 07-30 08:32 → SJJU 07-30 08:32 → SDC 08-01 08:24
PROVIDERS: ATTEND Surgery
PROC: 01NB0ZZ Release Lumbar Nerve, Open Approach (ICD-10-PCS; principal; 2020-07-26)
DX: M71.38 Other bursal cyst, other site (principal); M48.061 Spinal stenosis, lumbar region without neurogenic claudication; M54.16 Radiculopathy, lumbar region; Z79.899 Other long term (current) drug therapy; Z88.1 Allergy status to other antibiotic agents; Z88.8 Allergy status to other drugs, medicaments and biological substances
CPT/HCPCS: 36415; 76000; 80048; 85025; J0690; J1100; J1170; J1885; J2405; J2704; J3010; J3370; J7512; J8540; Q0175

== ENCOUNTER 2020-08-18 16:06 | Emergency (ER) | payer OTHER ==
--- NOTE | 2020-08-18 16:54 | RAD ---
Exam: Chest one view HISTORY:Chest pain Comparison: 07/21/2019 FINDINGS: Cardiac silhouette: Normal Aorta: Atherosclerotic Pulmonary vessels: Normal Costophrenic angles: Clear LUNGS: Possible right lower lobe infiltrate. Pneumothorax: None Osseous abnormalities: None IMPRESSION: 1. Right lower lobe infiltrate.
[2020-08-18 17:07] LABS: #Eosinphils 0.2 thou/uL (0.0-0.7); #Lymphocytes 2.4 thou/uL (1.20-3.40); #Monocytes 0.7 thou/uL (0.11-0.59); #Neutrophils 4.4 thou/uL (1.40-6.50); %Basophils 0.6 % (0.0-1.0); %Eosinophils 3.1 % (0.0-10.0); %Lymphocytes 30.8 % (21.0-51.0); %Monocytes 8.7 % (0.0-10.0); %Neutrophils 56.8 % (42.0-75.0); Hemoglobin 13.6 g/dL (12.0-16.0); Mean Corpuscular HGB CONC 33.8 g/dL (32.0-36.0); Mean Corpuscular Hemoglobin 31.9 pg (27.0-31.0); Mean Corpuscular Volume 94.1 fL (78.0-98.0); Mean Platelet Volume 5.9 fL (7.4-10.4); Platelet Count 314 thou/uL (130-400); RBC Distribution Width 12.7 % (11.5-14.5); Red Blood Cell (RBC) Count 4.27 mill/uL (4.20-5.40); White Blood Cell (WBC) Count 7.7 thou/uL (4.8-10.8)
[2020-08-18 17:36] LABS: ALT (SGPT) 11 U/L (8-55); AST (SGOT) 9 U/L (5-34); Albumin 3.7 g/dL (3.5-5.0); Alkaline Phosphatase 120 U/L (40-110); Anion Gap 11 mmol/L (10-20); BUN (Urea Nitrogen) 10 mg/dL (9.8-20.1); Bilirubin, Total Less than 0.2 mg/dL (0.2-1.2); CK (CPK) 21 U/L (29-168); Calc. Creatinine Clearance 0 mL/min (70-130); Carbon Dioxide 29 mmol/L (22-29); Chloride 98 mmol/L (98-107); Estimated GFR-MDRD Greater than 90; Globulin 2.8 g/dL (2.4-3.5); Glucose 100 mg/dL (70-105); Lipase 5 U/L (8-78); Protein, Total 6.5 g/dL (6.0-8.3); Sodium 134 mmol/L (136-145)
[2020-08-18 20:23] LABS: Troponin I Less than 0.010 ng/mL (< 0.028)
--- NOTE | 2020-08-20 12:56 | EKG ---
Test Reason : CHEST PAIN REPEAT Blood Pressure : / mmHG Vent. Rate : 062 BPM Atrial Rate : 062 BPM P-R Int : 170 ms QRS Dur : 082 ms QT Int : 434 ms P-R-T Axes : 075 054 055 degrees QTc Int : 440 ms Normal sinus rhythm Possible Left atrial enlargement Septal infarct , age undetermined Abnormal ECG Confirmed by TIBURCIO CURRAN ([id number]), editor in chief [address] ([id number]) on 08/20/2020 12:56:22 PM Referred By: Confirmed By:TIBURCIO Diamond
--- NOTE | 2020-08-20 12:56 | EKG ---
Test Reason : Blood Pressure : / mmHG Vent. Rate : 074 BPM Atrial Rate : 074 BPM P-R Int : 166 ms QRS Dur : 078 ms QT Int : 404 ms P-R-T Axes : 068 023 050 degrees QTc Int : 448 ms Normal sinus rhythm Possible Left atrial enlargement Septal infarct , age undetermined Abnormal ECG Confirmed by TIBURCIO CURRAN ([id number]), editor index [address] ([id number]) on 08/20/2020 12:56:02 PM Referred By: Confirmed By:TIBURCIO Diamond
== END 2020-08-18 21:10 | disposition home or self-care (01) ==
LOC: ERS 16:06
DX: J18.9 Pneumonia, unspecified organism (principal); R07.89 Other chest pain; E78.5 Hyperlipidemia, unspecified; E78.00 Pure hypercholesterolemia, unspecified; I10 Essential (primary) hypertension; M06.9 Rheumatoid arthritis, unspecified; J44.9 Chronic obstructive pulmonary disease, unspecified; F31.9 Bipolar disorder, unspecified; F17.210 Nicotine dependence, cigarettes, uncomplicated; Z79.899 Other long term (current) drug therapy
CPT/HCPCS: 36415; 71045; 80053; 82550; 83690; 83880; 84484; 85025; 93005

== ENCOUNTER 2020-10-18 12:22 | Outpatient (CLI) | payer OTHER ==
[2020-10-18 12:51] LABS: Estimated GFR-MDRD - POC Greater than 90
[2020-10-18] MEDS ORDERED: Magnevist 469MG/ML 20 ML VIAL ONE (13:16)
--- NOTE | 2020-10-18 15:10 | MRI ---
MRI OF THE PELVIS WITH AND WITHOUT IV CONTRAST: INDICATION: History of pelvic pain. CONTRAST: 16 cc of MultiHance. COMPARISON: None. FINDINGS: Respiratory motion artifact and patient motion limit image detail. No definite free fluid is evident . Visualized aspects of the bladder, reproductive structures, rectum, and perirectal soft tissues ar e unremarkable-appearing. No pathologically enlarged lymph nodes are evident. No displaced fracture is evident. SI joints appear within normal limits. No displaced fracture is evident. No lymphaden opathy is noted. No area of abnormal enhancement is demonstrated. IMPRESSION: 1. No acute abnormality demonstrated. 2. Specifically, the lower sacrum and coccyx appear intact without evidence of fracture. No presacr al fluid or soft tissue mass is grossly evident. POS: [facility]
== END 2020-10-18 12:23 | disposition home or self-care (01) ==
LOC: BICMRI 12:22
PROVIDERS: ATTEND Surgery
DX: R10.2 Pelvic and perineal pain (principal)
CPT/HCPCS: 72197; 82565; A9579

== ENCOUNTER 2021-01-27 13:59 | Outpatient (CLI) | payer OTHER ==
[2021-01-27 15:12] LABS: Bilirubin Neg (Negative); Blood, Urine 25 (Negative); Clarity Clear (Clear); Glucose, Urine (Dipstick) Normal (Negative); Ketone, Urine Negative (Negative); Leukocyte 25 (Negative); Nitrite Negative (Negative); Protein, Urine (Dipstick) Negative (Neg-Trace); Urobilinogen Normal mg/dL (Less than 2)
[2021-01-27 15:19] LABS: RBC/HPF 0-3 HPF (0-3); Squamous Epithelial 0-3 HPF (0-3); WBC/HPF 0-3 HPF (0-3)
[2021-01-27 15:20] LABS: Bacteria/HPF Rare-Few HPF (None Seen)
[2021-01-27 15:23] LABS: #Eosinphils 0.2 10x3/uL (0.0-0.5); #Monocytes 0.9 10x3/uL (0.0-1.1); #Neutrophils 6.9 10x3/uL (1.5-8.4); %Basophils 0.4 % (0.0-2.0); %Eosinophils 1.5 % (0.0-6.0); %Lymphocytes 26.9 % (18.0-47.0); %Monocytes 8.3 % (0.0-10.0); %Neutrophils 62.4 % (40.0-75.0); Hemoglobin 14.4 g/dL (12.0-15.5); Mean Platelet Volume 8.8 fl (7.4-10.4); Platelet Count 346 10x3/uL (150-450); RBC Distribution Width 13.2 % (11.5-14.5)
[2021-01-28 02:32] LABS: SARS-CoV-2 PCR by NAA Not Detected (NotDetected)
== END 2021-01-27 14:00 | disposition home or self-care (01) ==
LOC: LABBT 13:59
PROVIDERS: ATTEND Orthopaedic Surgery Hand Surgery
DX: Z01.818 Encounter for other preprocedural examination (principal); Z20.822 Contact with and (suspected) exposure to COVID-19; G56.02 Carpal tunnel syndrome, left upper limb
CPT/HCPCS: 81001; 85025; 87635; 93005; 93010; U0003; U0005

== ENCOUNTER 2021-01-31 05:57 | Day surgery (SDC) | payer OTHER ==
[2021-01-30 13:13] VITALS: BMI 34.0
[2021-01-31] MEDS ORDERED: Sodium Chloride 0.9% 10 ML ONE (06:17)
[2021-01-31] MEDS ORDERED: Bacitracin Zinc Ointment 30 gm TUBE ONE (06:17)
[2021-01-31] MEDS ORDERED: Betamet Acet/Betamet Na Ph 30 MG/5 ML VIAL ONE (06:17)
[2021-01-31] MEDS ORDERED: Bupivacaine PF 0.5% 30 ML VIAL ONE (06:17)
[2021-01-31] MEDS ORDERED: Fentanyl 100 MCG/2 ML VIAL ONE ×2 (06:33→10:14)
[2021-01-31] MEDS ORDERED: PHENYLEPHRINE-NS 100 MCG/ML 10 ML SYRINGE ONE (10:14)
[2021-01-31] MEDS ORDERED: PROPOFOL 200 MG/20 ML VIAL ONE (10:14)
[2021-01-31] MEDS ORDERED: Ketorolac Tromethamine 30 MG/ML VIAL ONE (10:14)
[2021-01-31] MEDS ORDERED: Dexamethasone 20 MG/5 ML VIAL ONE (10:14)
[2021-01-31] MEDS ORDERED: Lidocaine 1% PF 5 ML VIAL ONE (10:14)
[2021-01-31] MEDS ORDERED: Ondansetron PF 4 MG/2 ML Vial ONE (10:14)
--- NOTE | 2021-02-01 07:23 | OP ---
DATE OF PROCEDURE: 01/31/2021 PREOPERATIVE DIAGNOSES: 1. Left carpal tunnel syndrome. 2. Left forearm rheumatoid nodule. 3. Left elbow rheumatoid nodule. 4. Left olecranon bursitis. POSTOPERATIVE DIAGNOSES: 1. Left carpal tunnel syndrome. 2. Left forearm rheumatoid nodule. 3. Left elbow rheumatoid nodule. 4. Left olecranon bursitis. 5. Findings of a 3 x 3 cm forearm and a 6 x 4 cm elbow olecranon region rheumatoid nodule with marked olecranon bursitis. PROCEDURES PERFORMED: 1. Left carpal tunnel release. 2. Left forearm rheumatoid nodule excision 3 x 3 cm. 3. Left elbow rheumatoid nodule excision 6 x 4 cm. 4. Left olecranon bursectomy radical. 5. Left long arm splint application. SPECIMEN SENT: Yes. Forearm and elbow rheumatoid nodules, separate specimens from separate sites as well as the olecranon bursa with the elbow nodule. ESTIMATED BLOOD LOSS: 20 mL. TOURNIQUET TIME: 47 minutes. FINDINGS: No infection seen and very tight transcarpal ligament with thickened olecranon bursa. INDICATIONS: The patient with rheumatoid disease with known rheumatoid nodules. On appropriate medication, but still developed this along with numbness and tingling, refractory to conservative treatment and electrodiagnostic testing and clinical testing consistent with carpal tunnel syndrome. DESCRIPTION OF PROCEDURE: After successful general endotracheal anesthesia, the limb was prepped and draped. We draped the arm all the way out to the axilla including the entire shoulder and placed a sterile tourniquet high in the forearm because we had to work in the olecranon region. We then outlined the carpal tunnel incision in-line with the ring finger from mediolateral as far distal as Rosa's cardinal line as far proximal as 5 mm distal to the volar wrist flexion crease. We also outlined an incision over the forearm mass and because there was an incision over the elbow mass. The elbow incision had a zigzag away from the olecranon tip medially, so we could visualize the ulnar nerve necessary. We injected both sites with 10 mL of 0.5% Marcaine, exsanguinated the limb and inflated tourniquet to 250 mmHg pressure. We then next carried the incision through skin and subcutaneous tissue until we visualized the transverse carpal ligament. We then placed an incision beginning in the center of the palmaris longus and in the center of the transverse carpal ligament from medial to lateral, carried through until we could see the underlying nerve and tendons. There was no tendinitis. We then opened the transverse carpal ligament with the help of retraction from the clinical medical assistant using [place] blade in combination with tenotomy scissors from the midportion distally. The patient had a type 1 motor branch takeoff, which was preserved as were the digital branches. We then looked from the midportion proximally, elevated the skin under direct visualization using a combination of [place] blade, tenotomy scissors, also released the transverse carpal ligament. There was marked stippling without hourglass formation over the nerve and the nerve completely free when this was done. We placed 2 mL of Celestone here and closed the incision with interrupted 4-0 nylon. We then put the arm in the 90 degrees elbow flexion and forward flexion, abduction of the shoulder with appropriate padding and the arm was held in this position. We carried the incision through skin and subcutaneous tissue, first identifying the forearm mass and elevating it as it was primarily from the central to radial aspect. There was no olecranon bursal abnormality here. We then carried the incision distally including the zigzag medially towards the cubital tunnel and we visualized the ulnar nerve and protected it well within in this process did not violate the nerve. We then dissected this mass along with a marked amount of olecranon bursal thickening from ulnar radially. We then also from the skin where it was adhered to several sites. We then sent the mass on block with no evidence of infection or drainage to Pathology. Also radical olecranon bursa was completed. This was sent with the olecranon/elbow mass. We deflated tourniquet and obtained hemostasis. We then closed this incision with a subcutaneous running 4-0 Monocryl and then 3-0 nylon for the epidermis in interrupted mattress pattern. Bulky dressing was applied. Bacitracin, Adaptic, 4x4s, and a separate Kerlix at each of my incisions. Long-arm splint was applied and the patient left the operating room without evidence of anesthetic or operative complication. Job ID: [id number]
== END 2021-01-31 11:25 | disposition home or self-care (01) ==
LOC: SDC 05:57
PROVIDERS: ATTEND Orthopaedic Surgery Hand Surgery
PROC: 0MB40ZZ Excision of Left Elbow Bursa and Ligament, Open Approach (ICD-10-PCS; principal; 2021-01-31)
PROC: 01N50ZZ Release Median Nerve, Open Approach (ICD-10-PCS; principal; 2021-01-31)
DX: M06.322 Rheumatoid nodule, left elbow (principal); M06.39 Rheumatoid nodule, multiple sites; M70.22 Olecranon bursitis, left elbow; G56.02 Carpal tunnel syndrome, left upper limb; F31.9 Bipolar disorder, unspecified; E78.00 Pure hypercholesterolemia, unspecified; F20.9 Schizophrenia, unspecified; M10.9 Gout, unspecified; M06.9 Rheumatoid arthritis, unspecified; J44.9 Chronic obstructive pulmonary disease, unspecified; F17.210 Nicotine dependence, cigarettes, uncomplicated; Z88.8 Allergy status to other drugs, medicaments and biological substances
CPT/HCPCS: 88305; J0690; J0702; J1100; J1885; J2405; J2704; J3010; J3490; S0020

== ENCOUNTER 2021-04-27 13:54 | Outpatient (CLI) | payer OTHER ==
[2021-04-27 15:29] LABS: Bilirubin Neg (Negative); Blood, Urine Negative (Negative); Clarity Clear (Clear); Glucose, Urine (Dipstick) Normal (Negative); Ketone, Urine Negative (Negative); Leukocyte 25 (Negative); Nitrite Negative (Negative); Protein, Urine (Dipstick) Negative (Neg-Trace); Specific Gravity, Urine 1.005 (1.002-1.036); Urobilinogen Normal mg/dL (Less than 2)
[2021-04-27 15:50] LABS: #Basophils 0.1 10x3/uL (0.0-0.2); #Eosinphils 0.3 10x3/uL (0.0-0.5); #Neutrophils 6.7 10x3/uL (1.5-8.4); %Basophils 0.6 % (0.0-2.0); %Eosinophils 2.3 % (0.0-6.0); %Lymphocytes 29.4 % (18.0-47.0); %Monocytes 8.3 % (0.0-10.0); %Neutrophils 58.6 % (40.0-75.0); Hemoglobin 14.2 g/dL (12.0-15.5); Mean Corpuscular HGB CONC 32.8 g/dL (32.0-36.0); Mean Corpuscular Volume 91.4 fl (81.6-98.3); Mean Platelet Volume 8.8 fl (7.4-10.4); Platelet Count 343 10x3/uL (150-450); Red Blood Cell (RBC) Count 4.74 10x6/uL (3.90-5.03); White Blood Cell (WBC) Count 11.5 10x3/uL (3.5-10.5)
[2021-04-27 16:13] LABS: Bacteria/HPF None Seen HPF (None Seen); RBC/HPF None Seen HPF (0-3); Squamous Epithelial 0-3 HPF (0-3); WBC/HPF 0-3 HPF (0-3)
[2021-04-28 03:22] LABS: SARS-CoV-2 NAA Rapid Test Not Detected (NotDetected)
== END 2021-04-27 13:55 | disposition home or self-care (01) ==
LOC: LABBT 13:54
PROVIDERS: ATTEND Orthopaedic Surgery Hand Surgery
DX: Z01.812 Encounter for preprocedural laboratory examination (principal); G56.01 Carpal tunnel syndrome, right upper limb; M06.341 Rheumatoid nodule, right hand; M06.321 Rheumatoid nodule, right elbow; Z20.822 Contact with and (suspected) exposure to COVID-19
CPT/HCPCS: 81001; 85025; 87635; U0002; U0003; U0005

== ENCOUNTER 2021-05-02 05:56 | Day surgery (SDC) | payer OTHER ==
[2021-04-27 10:59] VITALS: BMI 32.9
[2021-05-02] MEDS ORDERED: Sodium Chloride 0.9% 10 ML ONE (06:22)
[2021-05-02] MEDS ORDERED: Betamet Acet/Betamet Na Ph 30 MG/5 ML VIAL ONE (06:22)
[2021-05-02] MEDS ORDERED: Bupivacaine PF 0.5% 30 ML VIAL ONE (06:22)
[2021-05-02] MEDS ORDERED: Bacitracin Zinc Ointment 30 gm TUBE ONE (06:22)
[2021-05-02] MEDS ORDERED: Fentanyl 100 MCG/2 ML VIAL ONE (07:14)
[2021-05-02] MEDS ORDERED: Midazolam HCl 2 mg/2 ml Vial ONE (07:14)
[2021-05-02] MEDS ORDERED: Lidocaine 1% (PF) 30 ML VIAL ONE (07:17)
[2021-05-02] MEDS ORDERED: PROPOFOL 200 MG/20 ML VIAL ONE (07:31)
[2021-05-02] MEDS ORDERED: Ondansetron PF 4 MG/2 ML Vial ONE (07:31)
[2021-05-02] MEDS ORDERED: Bupivacaine HCl 0.5%/Epinephrine 1:200,000/PF 30 ml Vial ONE (07:31)
[2021-05-02] MEDS ORDERED: Lidocaine 1% PF 5 ML VIAL ONE (07:31)
[2021-05-02] MEDS ORDERED: Dexamethasone 20 MG/5 ML VIAL ONE (07:31)
[2021-05-02] MEDS ORDERED: Thrombin 5000 UNITS/5 ML VIAL ONE (08:56)
[2021-05-02] MEDS ORDERED: Ketorolac Tromethamine 30 MG/ML VIAL ONE (11:19)
== END 2021-05-02 12:30 | disposition home or self-care (01) ==
LOC: SDC 05:56
PROVIDERS: ATTEND Orthopaedic Surgery Hand Surgery
PROC: 01N60ZZ Release Radial Nerve, Open Approach (ICD-10-PCS; principal; 2021-05-02)
PROC: 0JBJ0ZZ Excision of Right Hand Subcutaneous Tissue and Fascia, Open Approach (ICD-10-PCS; principal; 2021-05-02)
PROC: 01N50ZZ Release Median Nerve, Open Approach (ICD-10-PCS; 2021-05-02)
PROC: 0MT30ZZ Resection of Right Elbow Bursa and Ligament, Open Approach (ICD-10-PCS; 2021-05-02)
DX: M70.21 Olecranon bursitis, right elbow (principal); G56.01 Carpal tunnel syndrome, right upper limb; L92.8 Other granulomatous disorders of the skin and subcutaneous tissue; M10.9 Gout, unspecified; M06.9 Rheumatoid arthritis, unspecified; J44.9 Chronic obstructive pulmonary disease, unspecified; Z79.51 Long term (current) use of inhaled steroids; Z79.899 Other long term (current) drug therapy; Z88.1 Allergy status to other antibiotic agents; Z88.8 Allergy status to other drugs, medicaments and biological substances
CPT/HCPCS: 88304; J0690; J0702; J1100; J1885; J2001; J2250; J2405; J2704; J3010; J3490; S0020

== ENCOUNTER 2021-10-10 13:40 | Outpatient (CLI) | payer OTHER | END 2021-10-10 13:41 | disposition home or self-care (01) | LOC: BICMAMMO 13:40 | PROVIDERS: ATTEND Nurse Practitioner Family | DX: Z12.31 Encounter for screening mammogram for malignant neoplasm of breast (principal); Z13.820 Encounter for screening for osteoporosis; M05.79 Rheumatoid arthritis with rheumatoid factor of multiple sites without organ or systems involvement; M85.89 Other specified disorders of bone density and structure, multiple sites | CPT/HCPCS: 77067; 77080 ==

== ENCOUNTER 2023-08-02 09:06 | Inpatient (IN) | payer OTHER ==
[2023-08-02] MEDS ORDERED: Vancomycin 1 GM in Premix 1 BAG IVPB SCH (10:15)
[2023-08-02] MEDS ORDERED: Vancomycin 1 GM/200 ML (FROZEN) BAG ONE (10:19)
[2023-08-02 10:45] LABS: #Eosinphils 0.1 thou/uL (0.0-0.7); #Monocytes 0.5 thou/uL (0.11-0.59); #Neutrophils 3.7 thou/uL (1.40-6.50); %Basophils 0.4 % (0.0-1.0); %Eosinophils 1.8 % (0.0-10.0); %Monocytes 9.5 % (0.0-10.0); %Neutrophils 64.1 % (42.0-75.0); Hematocrit 43.1 % (36.0-47.0); Hemoglobin 14.5 g/dL (12.0-16.0); Mean Corpuscular HGB CONC 33.6 g/dL (32.0-36.0); Mean Corpuscular Hemoglobin 29.2 pg (27.0-31.0); Mean Corpuscular Volume 86.7 fl (78.0-98.0); Mean Platelet Volume 8.7 fL (7.4-10.4); Platelet Count 327 10x3/uL (130-400); RBC Distribution Width 13.7 % (11.5-14.5); Red Blood Cell (RBC) Count 4.97 mill/uL (4.20-5.40); White Blood Cell (WBC) Count 5.7 10x3/uL (4.8-10.8)
[2023-08-02 11:12] LABS: ALT (SGPT) 8 U/L (8-55); AST (SGOT) 16 U/L (5-34); Albumin 4.2 g/dL (3.4-4.8); Alkaline Phosphatase 97 U/L (40-110); Anion Gap 13 mmol/L (10-20); BUN (Urea Nitrogen) 5 mg/dL (9.8-20.1); Bilirubin, Total 0.5 mg/dL (0.2-1.2); Calc. Creatinine Clearance 0 mL/min (70-130); Calcium 9.6 mg/dL (7.8-10.44); Carbon Dioxide 28 mmol/L (23-31); Chloride 100 mmol/L (98-107); Estimated GFR 99; Globulin 3.2 g/dL (2.4-3.5); Glucose 90 mg/dL (80-115); Potassium 4.1 mmol/L (3.5-5.1); Protein, Total 7.4 g/dL (5.8-8.1); Sodium 137 mmol/L (136-145)
[2023-08-02 13:59] VITALS: BMI 30.9
[2023-08-02] MEDS ORDERED: Bacitracin Zinc Ointment 30 gm TUBE ONE (15:48)
[2023-08-02] MEDS ORDERED: Bupivacaine PF 0.5% 30 ML VIAL ONE (15:48)
[2023-08-02] MEDS ORDERED: fentaNYL PF 100 MCG/2 ML SYRINGE ONE (15:55)
[2023-08-02] MEDS ORDERED: Lidocaine 1% PF 5 ML VIAL ONE (16:09)
[2023-08-02] MEDS ORDERED: Ondansetron PF 4 MG/2 ML Vial ONE (16:09)
[2023-08-02] MEDS ORDERED: PROPOFOL 200 MG/20 ML VIAL ONE (16:09)
[2023-08-02] MEDS ORDERED: Dexamethasone 20 MG/5 ML VIAL ONE (16:09)
[2023-08-02] MEDS ORDERED: Thrombin 5000 UNITS/5 ML VIAL ONE (16:48)
[2023-08-02] MEDS ORDERED: fentaNYL 50 mcg/mL 1 mL Vial ONE (17:26)
[2023-08-02] MEDS ORDERED: HYDROcodone/Acetaminophen 5/325 mg Tablet PO PRN (17:28)
[2023-08-02] MEDS ORDERED: traMADol HCl 50 MG TAB PO PRN (17:28)
[2023-08-02] MEDS ORDERED: Acetaminophen 325 MG TAB PO PRN (17:28)
[2023-08-02] MEDS ORDERED: Promethazine HCl 25 MG/ML VIAL IM PRN ×2 (17:28→17:32)
[2023-08-02] MEDS ORDERED: Morphine 4 MG/ML VIAL SLOW IVP PRN (17:28)
[2023-08-02] MEDS ORDERED: TETANUS, DIPHTHERIA TOX,ADULT (TDVAX) 0.5 ML VIAL IM ONE (17:28)
[2023-08-02] MEDS ORDERED: Ondansetron PF 4 MG/2 ML Vial SLOW IVP PRN (17:28)
[2023-08-02] MEDS ORDERED: Communication Order-Pharmacy FS SCH (17:30)
[2023-08-02] MEDS ORDERED: Meperidine HCl/PF 25 MG/ML VIAL IM PRN (17:30)
[2023-08-02] MEDS ORDERED: Ondansetron HCl/PF 4 MG/2 ML Vial IVP PRN (17:32)
[2023-08-02 19:08] LABS: Anion Gap 11 mmol/L (10-20); BUN (Urea Nitrogen) 5 mg/dL (9.8-20.1); Calc. Creatinine Clearance 120 mL/min (70-130); Carbon Dioxide 26 mmol/L (23-31); Chloride 104 mmol/L (98-107); Estimated GFR 102; Glucose 101 mg/dL (80-115); Potassium 4.2 mmol/L (3.5-5.1); Sodium 137 mmol/L (136-145)
[2023-08-02] MEDS: Aspirin 81 mg Enteric Coated Tablet PO SCH (20:27)
[2023-08-02] MEDS: Vancomycin (BATCH) 1.25 GM in Premix 1 BAG IVPB SCH (20:27)
[2023-08-02] MEDS ORDERED: Bempedoic Acid/Ezetimibe [Nexlizet 180-10 Mg Tablet] PO SCH (21:00)
[2023-08-02] MEDS: Melatonin 3 MG TAB PO PRN (21:58)
[2023-08-02] MEDS: Perphenazine 2 MG TAB PO SCH (21:59)
[2023-08-03] MEDS: Vancomycin (BATCH) 1.25 GM in Premix 1 BAG IVPB SCH ×2 (05:20→17:22)
[2023-08-03] MEDS: Dextrose 5 % And 0.9 % NaCl 1,000 ML IV SCH ×4 (05:25→23:44)
[2023-08-03 06:20] LABS: #Monocytes 0.4 thou/uL (0.11-0.59); #Neutrophils 5.3 thou/uL (1.40-6.50); %Basophils 0.2 % (0.0-1.0); %Lymphocytes 13.6 % (21.0-51.0); %Monocytes 6.2 % (0.0-10.0); %Neutrophils 79.7 % (42.0-75.0); Hematocrit 35.4 % (36.0-47.0); Hemoglobin 11.9 g/dL (12.0-16.0); Mean Corpuscular HGB CONC 33.6 g/dL (32.0-36.0); Mean Corpuscular Hemoglobin 29.8 pg (27.0-31.0); Mean Corpuscular Volume 88.7 fl (78.0-98.0); Mean Platelet Volume 8.9 fL (7.4-10.4); Platelet Count 290 10x3/uL (130-400); RBC Distribution Width 13.5 % (11.5-14.5); Red Blood Cell (RBC) Count 3.99 mill/uL (4.20-5.40); White Blood Cell (WBC) Count 6.6 10x3/uL (4.8-10.8)
[2023-08-03] MEDS: Mometasone 200 MCG HFA INHALER (RT USE) INH SCH ×2 (07:47→19:29)
[2023-08-03] MEDS: Aspirin 81 mg Enteric Coated Tablet PO SCH ×2 (08:43→20:08)
[2023-08-03] MEDS: predniSONE 20 MG TAB PO SCH (08:43)
[2023-08-03] MEDS ORDERED: VANCOMYCIN IVPB PRN (09:40)
[2023-08-03] MEDS: Melatonin 3 MG TAB PO PRN (20:08)
[2023-08-03] MEDS: Perphenazine 2 MG TAB PO SCH (20:10)
[2023-08-04] MEDS: Vancomycin (BATCH) 1.25 GM in Premix 1 BAG IVPB SCH (05:26)
[2023-08-04] MEDS: Mometasone 200 MCG HFA INHALER (RT USE) INH SCH (07:37)
[2023-08-04] MEDS ORDERED: Fentanyl 250 MCG/5 ML VIAL ONE (07:45)
[2023-08-04] MEDS ORDERED: SUGAMMADEX SODIUM 200 MG/2 ML VIAL ONE (07:46)
[2023-08-04] MEDS ORDERED: Bacitracin Zinc Ointment 30 gm TUBE ONE (08:00)
[2023-08-04] MEDS ORDERED: Vancomycin 1 GM VIAL ONE (08:00)
[2023-08-04] MEDS ORDERED: PROPOFOL 200 MG/20 ML VIAL ONE (08:16)
[2023-08-04] MEDS ORDERED: Lidocaine 1% PF 5 ML VIAL ONE (08:16)
[2023-08-04] MEDS ORDERED: Promethazine HCl 25 MG/ML VIAL IM PRN (08:58)
[2023-08-04] MEDS ORDERED: Ondansetron HCl/PF 4 MG/2 ML Vial IVP PRN (08:58)
[2023-08-04] MEDS ORDERED: HYDROmorphone 2 MG/ML VIAL SLOW IVP PRN (08:58)
[2023-08-04] MEDS ORDERED: Bupivacaine PF 0.5% 30 ML VIAL ONE (09:01)
[2023-08-04 09:46] VITALS: TEMP 97.6
[2023-08-04] MEDS: predniSONE 20 MG TAB PO SCH (09:52)
[2023-08-04] MEDS: Aspirin 81 mg Enteric Coated Tablet PO SCH (09:53)
[2023-08-04 10:26] VITALS: BP 154/73
[2023-08-06] MEDS ORDERED: predniSONE 20 MG TAB PO SCH (08:00)
[2023-08-09] MEDS ORDERED: predniSONE 20 MG TAB PO SCH (08:00)
[2023-08-12] MEDS ORDERED: predniSONE 20 MG TAB PO SCH (09:00)
== END 2023-08-04 12:14 | disposition home or self-care (01) | DRG 501 ==
LOC: ERS 09:06 → SURG B 10:25
PROVIDERS: ADMIT Orthopaedic Surgery Hand Surgery; ATTEND Hospitalist
PROC: 0MB40ZZ Excision of Left Elbow Bursa and Ligament, Open Approach (ICD-10-PCS; 2023-08-02)
PROC: 0LB60ZZ Excision of Left Lower Arm and Wrist Tendon, Open Approach (ICD-10-PCS; principal; 2023-08-04)
DX: M70.22 Olecranon bursitis, left elbow (principal); L02.414 Cutaneous abscess of left upper limb; L03.114 Cellulitis of left upper limb; E78.00 Pure hypercholesterolemia, unspecified; J44.9 Chronic obstructive pulmonary disease, unspecified; F31.9 Bipolar disorder, unspecified; F17.210 Nicotine dependence, cigarettes, uncomplicated; M06.322 Rheumatoid nodule, left elbow; Z98.890 Other specified postprocedural states
CPT/HCPCS: 36415; 80053; 83605; 85025; 85652; 86140; 87040; 87070; 87077; 87186; 87205; 88304; 99285; J1100; J2405; J2704; J3010; J3370; J3370-JW; J7042; J7512; Q0175; S0020

== ENCOUNTER 2023-12-05 10:57 | Outpatient (CLI) | payer OTHER ==
[2023-12-05 13:26] LABS: #Eosinphils 0.2 10x3/uL (0.0-0.5); #Monocytes 0.6 10x3/uL (0.0-1.1); #Neutrophils 5.2 10x3/uL (1.5-8.4); %Basophils 0.4 % (0.0-2.0); %Eosinophils 1.8 % (0.0-6.0); %Lymphocytes 29.7 % (18.0-47.0); %Monocytes 7.4 % (0.0-10.0); %Neutrophils 60.5 % (40.0-75.0); Hematocrit 42.2 % (34.9-44.5); Hemoglobin 14.2 g/dL (12.0-15.5); Mean Corpuscular HGB CONC 33.6 g/dL (32.0-36.0); Mean Corpuscular Hemoglobin 28.6 pg (27.0-33.0); Mean Corpuscular Volume 85.1 fl (81.6-98.3); Mean Platelet Volume 8.7 fl (7.4-10.4); Platelet Count 463 10x3/uL (150-450); RBC Distribution Width 13.2 % (11.5-14.5); Red Blood Cell (RBC) Count 4.96 10x6/uL (3.90-5.03); White Blood Cell (WBC) Count 8.6 10x3/uL (3.5-10.5)
== END 2023-12-05 10:58 | disposition home or self-care (01) ==
LOC: LABBT 10:57
PROVIDERS: ATTEND Orthopaedic Surgery Hand Surgery
DX: Z01.818 Encounter for other preprocedural examination (principal); T81.30XA Disruption of wound, unspecified, initial encounter; T81.89XD Other complications of procedures, not elsewhere classified, subsequent encounter
CPT/HCPCS: 85025; 93005; 93010

== ENCOUNTER 2024-02-07 09:46 | Day surgery (SDC) | payer OTHER ==
[2024-02-04 14:22] VITALS: BMI 30.3
[2024-02-07] MEDS ORDERED: PROPOFOL 20 ML ONE (11:08)
[2024-02-07] MEDS ORDERED: Lidocaine 2% PF 5 ML VIAL ONE (11:09)
[2024-02-07] MEDS ORDERED: Bacitracin Zinc Ointment 30 gm TUBE ONE (12:41)
[2024-02-07] MEDS ORDERED: Bupivacaine PF 0.5% 30 ML VIAL ONE (12:42)
[2024-02-07] MEDS ORDERED: CEFAZOLIN 2 GM VIAL ONE (12:49)
[2024-02-07] MEDS ORDERED: Sodium Chloride 0.9% 100 ML ONE (12:49)
[2024-02-07] MEDS ORDERED: fentaNYL PF 100 MCG/2 ML SYRINGE ONE (13:08)
[2024-02-07] MEDS ORDERED: Ketorolac Tromethamine 30 MG (1 mL) VIAL ONE (13:09)
[2024-02-07] MEDS ORDERED: Dexamethasone 20 MG/5 ML VIAL ONE (13:09)
[2024-02-07] MEDS ORDERED: Ondansetron PF 4 MG/2 ML Vial ONE ×2 (13:09→13:12)
[2024-02-07] MEDS ORDERED: Thrombin 5000 UNITS/5 ML VIAL ONE (13:44)
== END 2024-02-07 17:07 | disposition home or self-care (01) ==
LOC: SDC 09:46
PROVIDERS: ATTEND Orthopaedic Surgery Hand Surgery
PROC: 0JBJ0ZZ Excision of Right Hand Subcutaneous Tissue and Fascia, Open Approach (ICD-10-PCS; principal; 2024-02-07)
PROC: 0MB40ZZ Excision of Left Elbow Bursa and Ligament, Open Approach (ICD-10-PCS; principal; 2024-02-07)
DX: M06.341 Rheumatoid nodule, right hand (principal); M06.321 Rheumatoid nodule, right elbow; M70.21 Olecranon bursitis, right elbow; F17.210 Nicotine dependence, cigarettes, uncomplicated; J44.9 Chronic obstructive pulmonary disease, unspecified; E78.00 Pure hypercholesterolemia, unspecified; F31.9 Bipolar disorder, unspecified; Z91.048 Other nonmedicinal substance allergy status; Z88.8 Allergy status to other drugs, medicaments and biological substances; Z88.2 Allergy status to sulfonamides; Z88.1 Allergy status to other antibiotic agents; Z79.899 Other long term (current) drug therapy
CPT/HCPCS: 88304; 88342; A6223; J0665; J1100; J1885; J2001; J2405; J2704; J3490